=== PATIENT | male | born 1950 | race Caucasian/White ===

== ENCOUNTER 2019-02-13 13:16 | Inpatient (IN) | payer MEDICARE, OTHER ==
[~2019-02-13] VITALS: Ht 188 cm; Wt 110.2 kg
[~2019-02-13 13:16] MED LIST changes: -ACET500 PO; -Florastor250 MG PO; -KAPSPARGO SPRIN50 MG PO; -LOSA25 PO; -LOSARTAN-HCTZ1 EAC1 PO; -ONDA4 PO; -PROM25 PO
[2019-02-13] MEDS ORDERED: KAPSPARGO SPRIN50 MG PO (16:01)
[2019-02-13] MEDS ORDERED: PROM25 PO (16:01)
[2019-02-13] MEDS ORDERED: LOSA25 PO (16:10)
[2019-02-13] MEDS ORDERED: LOSARTAN-HCTZ1 EAC1 PO (16:11)
[2019-02-13] MEDS ORDERED: Florastor250 MG PO (16:14)
[2019-02-13] MEDS ORDERED: ACET500 PO (16:15)
[2019-02-13 16:30] LABS: Albumin, Blood 3.4 g/dL (3.4-5.0); Albumin/Globulin Ratio 0.9 (0.8-1.8); Bilirubin, Total 0.7 mg/dL (0.1-1.0); Bun/Creatinine Ratio 21.4 (12.0-20.0); Calcium, Blood 9.2 mg/dL (8.5-10.1); Creatinine, Blood 1.73 mg/dL (0.60-1.20); Globulin, Blood 3.9 g/dL (2.2-4.0); Potassium, Blood 3.6 mmol/L (3.5-5.5); Total Protein, Blood 7.3 g/dL (6.4-8.2)
[2019-02-13 16:37] LABS: Source, Urine Voided
[2019-02-13 16:42] LABS: Bilirubin, Urine Neg (Neg); Blood, Urine Neg (Neg); Glucose Qualitative, Urine 2+ (Neg); Ketones, Urine Neg (Neg); Leukocyte Esterase, Urine Neg (Neg); Nitrite, Urine Neg (Neg); Protein, Urine Neg (Neg); Urobilinogen, Urine NORM (Normal)
[2019-02-13 16:50] LABS: Appearance, Urine Clear (Clear); Color, Urine Yellow (P-Yellow)
--- NOTE | 2019-02-13 18:40 | NUR ---
SHIFT SUMMARY: PT ARRIVED TO ROOM VIA W/C AND WAS ASSISTED TO BED WITH STAND BY ASSIST. PT DENIES ANY PAIN OR NAUSEA. PT WAS ORIENTED TO ROOM, NURSING STAFF AND HIS CALL LIGHT AND VERBALIZES AN UNDERSTANDING. PT IS AT BEDSIDE. BOTH PT AND HIS ARE VERY NICE AND PLEASANT AND COOPERATIVE AND GRATEFUL FOR HIS CARE.
[2019-02-14 04:36] LABS: Hematocrit 33.9 % (37.0-53.0); Hemoglobin 11.8 g/dL (13.5-17.5); Mean Corpuscular HGB 38.8 pg (26.0-34.0); Mean Corpuscular HGB Conc 34.8 g/dL (31.5-36.5); Mean Corpuscular Volume 112 fL (80-100); Mean Platelet Volume 11.2 fL (9.1-12.4); Platelet Count 266 K/mm3 (150-400); RDW Standard Deviation 53.7 fL (35.1-46.3); Red Blood Cell Count 3.04 M/mm3 (4.30-5.90); White Blood Cell Count 6.11 K/mm3 (4.00-11.30)
[2019-02-14 04:57] LABS: Anion Gap 9 mmol/L (6-16); Blood Urea Nitrogen 31 mg/dL (8-24); CO2, Blood 25 mmol/L (21-32); Calcium, Blood 8.7 mg/dL (8.5-10.1); Chloride, Blood 102 mmol/L (98-108); Creatinine, Blood 1.24 mg/dL (0.60-1.20); Glomerular Filtration Rate >60 (60-); Glucose, Blood 90 mg/dL (70-99); Potassium, Blood 3.1 mmol/L (3.5-5.5); Sodium, Blood 136 mmol/L (136-145)
--- NOTE | 2019-02-14 06:14 | NUR ---
SHIFT SUMMARY PT A/O NO C/O. INDEPENDENT IN ROOM. STATES HE STILL IS HAVING LOOSE STOOL. ABLE TO SLEEP ON AND OFF T/O NIGHT. CALL LIGHT IN REACH.
[2019-02-14 15:41] LABS: Adenovirus F 40/41 Not Detected (NOT DETECT); Astrovirus Not Detected (NOT DETECT); Campylobacter Sp Not Detected (NOT DETECT); Cryptosporidium Not Detected (NOT DETECT); Cyclospora Cayetanensis Not Detected (NOT DETECT); E. Coli O157 Not Detected (NOT DETECT); Entamoeba Histolytica Not Detected (NOT DETECT); Enteroaggregative E. coli-EAEC Not Detected (NOT DETECT); Enteropathogenic E. coli-EPEC Not Detected (NOT DETECT); Enterotoxigenic E. coli-ETEC Not Detected (NOT DETECT); Giardia Lamblia Not Detected (NOT DETECT); Norovirus GI/GII Not Detected (NOT DETECT); Plesiomonas Shigelloides Not Detected (NOT DETECT); Rotavirus A Not Detected (NOT DETECT); Salmonella Sp Not Detected (NOT DETECT); Sapovirus Not Detected (NOT DETECT); Shiga Toxin-prod E. coli-STEC Not Detected (NOT DETECT); Shigella/Enteroin E. coli-EIEC Not Detected (NOT DETECT); Vibrio Cholerae Not Detected (NOT DETECT); Vibrio Sp Not Detected (NOT DETECT); Yersinia Enterocolitica Not Detected (NOT DETECT)
--- NOTE | 2019-02-14 19:21 | NUR ---
NO ACUTE CHANGES NOTED THIS SHIFT, PT IS ANTICIPATING GOING HOME TOMORROW. WILL REPORT TO ONCOMING RN
[2019-02-15 05:13] LABS: Albumin, Blood 2.6 g/dL (3.4-5.0); Anion Gap 9 mmol/L (6-16); Blood Urea Nitrogen 18 mg/dL (8-24); Bun/Creatinine Ratio 17.5 (12.0-20.0); CO2, Blood 24 mmol/L (21-32); Calcium, Blood 8.5 mg/dL (8.5-10.1); Chloride, Blood 106 mmol/L (98-108); Creatinine, Blood 1.03 mg/dL (0.60-1.20); Glomerular Filtration Rate >60 (60-); Glucose, Blood 91 mg/dL (70-99); Potassium, Blood 3.2 mmol/L (3.5-5.5); Sodium, Blood 139 mmol/L (136-145)
[2019-02-15 05:14] LABS: Phosphorus, Blood 2.5 mg/dL (2.5-4.9)
--- NOTE | 2019-02-15 05:45 | NUR ---
SHIFT SUMMARY C/O PAIN IN NECK AND MEDICATED PER EMAR. HE WAS ABLE TO SLEEP ON AND OFF T/O NIGHT. CALL LIGHT IN REACH.
[2019-02-15] MEDS ORDERED: ONDA4 PO (11:07)
--- NOTE | 2019-02-15 11:59 | NUR ---
PT HAS BEEN A/O X 4 WITH NO C/O PAIN OR DISCOMFORT ALL MORNING. HE IS SELF AMBULATING TO THE TOILET INDEPENDENTLY. PT IS TOLERATING A REGUALR DIET. GAVE ORDERS TO DC HOME WITH . F/U APPT WAS SCHEDULED WITH PCP ORDERED. ALL MEDS AND INSTRUCTIONS REVIEWED WITH PT AND , ALL QUESTIONS ANSWERED. IV REMOVED WITH NO ISSUES. ALL PERSONAL BELONGINGS SENT WITH PT. PT IS THANKFUL FOR HIS CARE HERE AND STABLE UPON DC.
== END 2019-02-15 11:59 | disposition home or self-care (01) | DRG 683 ==
LOC: ER 13:16 → MEDS 13:17 → ENPENDDIS 02-15 10:44 → MEDS 02-15 11:59
PROVIDERS: Emergency Medicine; ADMIT Internal Medicine
DX: N17.9 Acute kidney failure, unspecified (principal); E87.1 Hypo-osmolality and hyponatremia; E86.0 Dehydration; R19.7 Diarrhea, unspecified; E87.6 Hypokalemia; G89.29 Other chronic pain; M54.9 Dorsalgia, unspecified; I10 Essential (primary) hypertension; K21.9 Gastro-esophageal reflux disease without esophagitis; E78.5 Hyperlipidemia, unspecified; Z79.82 Long term (current) use of aspirin; Z79.899 Other long term (current) drug therapy; Z87.891 Personal history of nicotine dependence
CPT/HCPCS: 0097U; 36415; 80048; 80053; 80069; 81003; 84300; 85027; 93005; 93010; 96360; 96361; 99285-25; J1650; J2405; J7030

== ENCOUNTER → 2019-02-13 | Outpatient (CLI) | payer MEDICARE, OTHER ==
[~2019-02-13] MED LIST: ACET500 PO; ASPI81CH PO; FISH OIL 1,0001 EACH PO; Florastor250 MG PO; KAPSPARGO SPRIN50 MG PO; LOSA25 PO; LOSARTAN-HCTZ1 EAC1 PO; LOSARTAN-HCTZ1 EAC2 PO; MILK THISTLE140 MG PO; Naproxen500 MG PO; ONDA4 PO; PROM25 PO; Saw Palmetto160 MG PO; VICODIN 5-3001 EACH PO; Zantac150 MG PO; Zofran Odt4 MG SL
[2019-02-13 12:44] LABS: Albumin, Blood 3.6 g/dL (3.4-5.0); Albumin/Globulin Ratio 0.8 (0.8-1.8); BASOPHILS ABSOLUTE AUTO 0.08 K/mm3 (0.00-0.23); BASOPHILS PERCENT AUTO 1 % (0-2); Bilirubin, Total 0.8 mg/dL (0.1-1.0); Bun/Creatinine Ratio 19.1 (12.0-20.0); Calcium, Blood 9.4 mg/dL (8.5-10.1); Creatinine, Blood 2.04 mg/dL (0.60-1.20); EOSINOPHILS ABSOLUTE AUTO 0.03 K/mm3 (0.00-0.68); EOSINOPHILS PERCENT AUTO 0 % (0-6); Globulin, Blood 4.6 g/dL (2.2-4.0); Hematocrit 41.1 % (37.0-53.0); Hemoglobin 14.4 g/dL (13.5-17.5); IMMATURE GRAN ABSOLUTE AUTO 0.03 K/mm3 (0.00-0.10); IMMATURE GRAN PERCENT AUTO 0 % (0-1); LYMPHOCYTES ABSOLUTE AUTO 1.44 K/mm3 (0.84-5.20); LYMPHOCYTES PERCENT AUTO 17 % (21-46); MONOCYTES ABSOLUTE AUTO 1.35 K/mm3 (0.16-1.47); MONOCYTES PERCENT AUTO 16 % (4-13); Mean Corpuscular HGB 38.4 pg (26.0-34.0); Mean Corpuscular Volume 110 fL (80-100); Mean Platelet Volume 11.1 fL (9.1-12.4); NEUTROPHILS ABSOLUTE AUTO 5.61 K/mm3 (1.96-9.15); NEUTROPHILS PERCENT AUTO 66 % (41-73); Platelet Count 373 K/mm3 (150-400); Potassium, Blood 3.3 mmol/L (3.5-5.5); RDW Standard Deviation 52.8 fL (35.1-46.3); Red Blood Cell Count 3.75 M/mm3 (4.30-5.90); Total Protein, Blood 8.2 g/dL (6.4-8.2); Uric Acid, Blood 5.9 mg/dL (3.5-7.2); White Blood Cell Count 8.54 K/mm3 (4.00-11.30)
== END ==
LOC: LAB 12:00 → LAB SHORT 12:00
PROVIDERS: Nurse Practitioner
DX: M25.50 Pain in unspecified joint (principal); R22.0 Localized swelling, mass and lump, head
CPT/HCPCS: 80053; 84550; 85025

== ENCOUNTER → 2019-02-20 | Outpatient (CLI) | payer MEDICARE, OTHER ==
[~2019-02-20] MED LIST changes: +ACET500 PO; +Florastor250 MG PO; +KAPSPARGO SPRIN50 MG PO; +LOSA25 PO; +LOSARTAN-HCTZ1 EAC1 PO; +ONDA4 PO; +PROM25 PO
[2019-02-20 16:52] LABS: Adenovirus F 40/41 Not Detected (NOT DETECT); Astrovirus Not Detected (NOT DETECT); Campylobacter Sp Not Detected (NOT DETECT); Cryptosporidium Not Detected (NOT DETECT); Cyclospora Cayetanensis Not Detected (NOT DETECT); E. Coli O157 Not Detected (NOT DETECT); Entamoeba Histolytica Not Detected (NOT DETECT); Enteroaggregative E. coli-EAEC Not Detected (NOT DETECT); Enteropathogenic E. coli-EPEC Not Detected (NOT DETECT); Enterotoxigenic E. coli-ETEC Not Detected (NOT DETECT); Giardia Lamblia Not Detected (NOT DETECT); Norovirus GI/GII Not Detected (NOT DETECT); Plesiomonas Shigelloides Not Detected (NOT DETECT); Rotavirus A Not Detected (NOT DETECT); Salmonella Sp Not Detected (NOT DETECT); Sapovirus Not Detected (NOT DETECT); Shiga Toxin-prod E. coli-STEC Not Detected (NOT DETECT); Shigella/Enteroin E. coli-EIEC Not Detected (NOT DETECT); Vibrio Cholerae Not Detected (NOT DETECT); Vibrio Sp Not Detected (NOT DETECT); Yersinia Enterocolitica Not Detected (NOT DETECT)
== END | disposition home or self-care (01) ==
LOC: LAB SHORT 12:53 → OLS 12:53 → LAB FUT 02-19 16:10
PROVIDERS: Family Medicine
DX: A09 Infectious gastroenteritis and colitis, unspecified (principal); I10 Essential (primary) hypertension
CPT/HCPCS: 0097U

== ENCOUNTER → 2019-08-31 | Outpatient (CLI) | payer MEDICARE, OTHER | END | disposition home or self-care (01) | LOC: LAB SHORT 12:32 → PLD 12:32 | DX: L98.9 Disorder of the skin and subcutaneous tissue, unspecified (principal) | CPT/HCPCS: 88305; 88312 ==

== ENCOUNTER → 2020-08-28 | Outpatient (CLI) | payer MEDICARE, OTHER | END | disposition home or self-care (01) | LOC: LAB 12:20 → LAB SHORT 12:20 | DX: C44.722 Squamous cell carcinoma of skin of right lower limb, including hip (principal) | CPT/HCPCS: 88305 ==

== ENCOUNTER → 2020-10-02 | Outpatient (CLI) | payer MEDICARE, OTHER | END | disposition home or self-care (01) | LOC: LAB SHORT 14:58 → LAB 14:58 | DX: C44.722 Squamous cell carcinoma of skin of right lower limb, including hip (principal) | CPT/HCPCS: 88305 ==